=== PATIENT | male | born 1965 | race Caucasian/White ===

== ENCOUNTER 2017-08-14 17:53 | Inpatient (IN) | payer MEDICAID ==
[2017-08-14 17:59] VITALS: BMI 25.0
[2017-08-14 18:52] LABS: BASO # 0.1 K/uL (0.0-0.2); EOS # 0.1 K/uL (0.0-0.7); EOS % 0.6 % (0.0-4.0); HEMOGLOBIN 15.2 g/dL (12.0-18.0); LYMPH # 3.8 K/uL (1.0-4.3); LYMPH % 33.8 % (20.0-40.0); MEAN CELL VOLUME 95.7 fL (80.0-94.0); MEAN CORPUSCULAR HEMOGLOBIN 33.8 pg (27.0-31.0); MEAN CORPUSCULAR HGB CONC 35.4 g/dL (33.0-37.0); MEAN PLATELET VOLUME 7.7 fL (7.2-11.7); MONO # 0.9 K/uL (0.0-0.8); MONO % 7.7 % (0.0-10.0); NEUT # 6.5 K/uL (1.8-7.0); NEUT % 56.9 % (50.0-75.0); NRBC % 0.1 % (0.0-2.0); RBC 4.5 Mil/uL (4.40-5.90); RED CELL DISTRIBUTION WIDTH 12.8 % (11.5-14.5); WHITE BLOOD COUNT 11.4 K/uL (4.8-10.8)
[2017-08-14 18:57] LABS: SQUAMOUS EPITHIAL 2 /hpf (0-5); URINE BACTERIA FEW (<OCC); URINE BILIRUBIN NEGATIVE (NEGATIVE); URINE BLOOD NEGATIVE (NEGATIVE); URINE CLARITY Hazy (Clear); URINE COLOR Amber (YELLOW); URINE GLUCOSE (UA) NORMAL (Normal); URINE HYALINE CAST >20 /lpf (0-2); URINE LEUKOCYTE ESTERASE TRACE Leu/uL (Negative); URINE PROTEIN 1+ mg/dL (NEGATIVE)
[2017-08-14 19:06] LABS: ALB/GLOB RATIO 0.9 (1.0-2.1); ALBUMIN 4.6 g/dL (3.5-5.0); ALT/SGPT 94 U/L (21-72); AST/SGOT 63 U/L (17-59); BLOOD UREA NITROGEN 30 mg/dL (9-20); CALCIUM 10.4 mg/dl (8.6-10.4); GFR AFRICAN-AMERICAN > 60; GFR NON-AFRICAN AMERICAN 58
[2017-08-14 19:09] LABS: BARBITURATES, UR NEGATIVE (NEGATIVE); BENZODIAZEPINES, UR NEGATIVE (NEGATIVE); PHENCYCLIDINE, UR NEGATIVE (NEGATIVE)
[2017-08-14 19:10] LABS: OPIATES, UR POSITIVE (NEGATIVE)
--- NOTE | 2017-08-14 19:39 | C.PDOC ---
History Of Present Illness Pt is here requesting detox from Heroin. Time Seen by Provider: 08/14/17 18:14 Chief Complaint (Nursing): Substance Abuse History Per: Patient Onset/Duration Of Symptoms: Days Current Symptoms Are (Timing): Still Present Suicide/Self Injury Attempted (Context): None Modifying Factor(s): Narcotics, Crack Severity: Moderate Associated Symptoms: denies: Suicidal Thoughts, Suicidal Plan Additional History Per: Prior Records Past Medical History Reviewed: Historical Data, Nursing Documentation, Vital Signs Vital Signs: Last Vital Signs Temp 97.7 F 08/14/17 17:59 Pulse 88 08/14/17 17:59 Resp 18 08/14/17 17:59 BP 111/78 08/14/17 17:59 Pulse Ox 98 08/14/17 17:59 - Medical History PMH: No Chronic Diseases - [facility] Procedures DRUG DETOXIFICATION (01/17/15) Family History: States: Unknown Family Hx - Social History Hx Tobacco Use: Yes Hx Alcohol Use: No Hx Substance Use: Yes (Snorts Heroin and smokes crack) Review Of Systems Except As Marked, All Systems Reviewed And Found Negative. Constitutional: Negative for: Fever Cardiovascular: Negative for: Chest Pain Respiratory: Negative for: Shortness of Breath Gastrointestinal: Positive for: Constipation, Rectal Pain. Negative for: Vomiting, Abdominal Pain Musculoskeletal: Negative for: Neck Pain, Back Pain Skin: Negative for: Rash Neurological: Negative for: Weakness, Numbness, Seizures, Altered Mental Status Physical Exam - Physical Exam Appears: Non-toxic, No Acute Distress Skin: Normal Color, Warm, Dry, No Rash Head: Atraumatic, Normacephalic Eye(s): bilateral: PERRL, EOMI Neck: Normal ROM, Supple Cardiovascular: Rhythm Regular Respiratory: Normal Breath Sounds, No Accessory Muscle Use Gastrointestinal/Abdominal: Soft, No Tenderness Rectal: Hemorrhoids Extremity: Normal ROM Neurological/Psych: Oriented x3, Normal Motor, Normal Sensation ED Course And Treatment - Laboratory Results Result Diagrams: 08/14/17 18:49 08/14/17 18:49 O2 Sat by Pulse Oximetry: 98 Pulse Ox Interpretation: Normal Progress Note: Pt is medically stable for detox admission. Disposition Counseled Patient/Family Regarding: Studies Performed, Diagnosis - Disposition Disposition: HOSPITALIZED Disposition Time: 19:46 Condition: STABLE - Clinical Impression Clinical Impression: Drug abuse, Opioid dependence Decision To Admit - Pt Status Changed To: Hospital Disposition Of: Inpatient - Admit Certification Admit to Inpatient:: After my assessment, the patient will require hospitalization for at least two midnights. This is because of the severity of symptoms shown, intensity of services needed, and/or the medical risk in this patient being treated as an outpatient. - InPatient: Physician Admission Certification: I certify that this patient requires 2 or more midnights of care for the following reason:: Detox. - . Bed Request Type: Detox Admitting Physician: Savannah Forbes Patient Diagnosis: Drug abuse, Opioid dependence
--- NOTE | 2017-08-14 20:01 | PCM.BM ---
Treatment Plan Problems - Problems identified on initial assessmt Potential for opiates withdrawal Date Initiated: 08/14/17 Time Initiated: 20:00 Assessment reference: NA Status: Active Treatment assets and liabiliti Patient Assests: cooperative, ADL independent, cognitively intact Patient Liabilities: substance abuse - Milieu Protocol Maintain good personal hygiene: daily Encourage regular showers, every shift Remind patient to perform daily oral care, every shift Assist patient to perform ADL's Conduct patient checks and document Observation sheet: Q15 minutes Maintain personal safety: every shift Educate patient to report safety concerns to staff, every shift Monitor environment for contraband/sharps Medication safety: Monitor for expected outcome, potential side effects: every shift, Assess barriers to learning: every shift, Assess readiness for medication education: every shift
[2017-08-14 20:08] VITALS: BP 108/65; PULSE 81; RESP 20; TEMP 98.6; O2SAT 96
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
--- NOTE | 2017-08-14 23:12 | PCM.PSYCH ---
Initial Psychiatric Evaluation - Initial Psychiatric Evaluation Type of Admission: Voluntary Legal Status: Capacity History of Present Illness and Precipitating Events: Patient is a 51 year old male with a history of poly-substance abuse self- referred to [facility] for heroin detox admission. When asked why he wants to detox today patient states Im just tired. During the course of the assessment patient explained that he is extremely motivated to get clean because he is expected to fly to [place] on August 17. Patients lives in [place] with their two grandchildren, his step son and daughter in law. 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 Patient reports significant weight loss due to his use. Patient reports he is smoking $200 worth of cocaine daily. Patient also is using 2 bundles of heroin intra nasally daily for the past 8 months. Patient began abusing heroin when he was 40. 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 Patient reports a family history of alcoholism; patients father and brothers were/are alcoholics. Patient reports a history of one prior detox admission to in 2004. Patient states this was his only detox admission. Patient reports a history of 12 step involvement and plans to resume AA meetings upon completion of detox. Patient denies any medical history. Patient denies any psych history. Patient denies both SI and HI. [ End ] Past Psychiatric History - Past Psychiatric History Pertinent Medical Hx (Current Medical&Sleep Prob, Allergies): Allergies Allergy/AdvReac Type Severity Reaction Status Date / Time No Known Allergies Allergy Verified 08/14/17 17:58 No Known Home Med 08/14/17
== END 2017-08-14 20:45 | disposition left against medical advice (07) | DRG 743 ==
LOC: C.ER 17:53 → C.7D 19:47
PROVIDERS: ADMIT Psychiatry & Neurology Psychiatry; ATTEND Psychiatry & Neurology Psychiatry
DX: F11.20 Opioid dependence, uncomplicated (principal); R63.4 Abnormal weight loss; F14.20 Cocaine dependence, uncomplicated

== ENCOUNTER 2018-05-11 19:43 | Inpatient (IN) | payer MEDICAID ==
[2018-05-11 19:44] VITALS: BMI 25.0
[2018-05-11 21:34] LABS: BASO % 0.1 % (0.0-2.0); EOS # 0.2 K/uL (0.0-0.7); EOS % 1.6 % (0.0-4.0); HEMOGLOBIN 13.5 g/dL (12.0-18.0); LYMPH # 3.9 K/uL (1.0-4.3); LYMPH % 38.2 % (20.0-40.0); MEAN CELL VOLUME 95.6 fL (80.0-94.0); MEAN CORPUSCULAR HEMOGLOBIN 34.1 pg (27.0-31.0); MEAN CORPUSCULAR HGB CONC 35.6 g/dL (33.0-37.0); MEAN PLATELET VOLUME 6.9 fL (7.2-11.7); MONO # 0.8 K/uL (0.0-0.8); MONO % 7.3 % (0.0-10.0); NEUT # 5.5 K/uL (1.8-7.0); NEUT % 52.8 % (50.0-75.0); RBC 3.97 Mil/uL (4.40-5.90); RED CELL DISTRIBUTION WIDTH 13.1 % (11.5-14.5); WHITE BLOOD COUNT 10.3 K/uL (4.8-10.8)
[2018-05-11 21:39] LABS: SQUAMOUS EPITHIAL 1 /hpf (0-5); URINE BILIRUBIN NEGATIVE (NEGATIVE); URINE BLOOD NEGATIVE (NEGATIVE); URINE CLARITY Clear (Clear); URINE COLOR Yellow (YELLOW); URINE GLUCOSE (UA) NORMAL (Normal); URINE LEUKOCYTE ESTERASE NEG Leu/uL (Negative); URINE PROTEIN NEGATIVE (NEGATIVE)
[2018-05-11 21:49] LABS: ALB/GLOB RATIO 1.1 (1.0-2.1); ALBUMIN 4.2 g/dL (3.5-5.0); ALT/SGPT 31 U/L (21-72); AST/SGOT 29 U/L (17-59); BLOOD UREA NITROGEN 25 mg/dL (9-20); CALCIUM 9.5 mg/dl (8.6-10.4); GFR NON-AFRICAN AMERICAN > 60
[2018-05-11 22:09] LABS: BARBITURATES, UR NEGATIVE (NEGATIVE); BENZODIAZEPINES, UR NEGATIVE (NEGATIVE); PHENCYCLIDINE, UR NEGATIVE (NEGATIVE)
[2018-05-11 22:12] LABS: OPIATES, UR POSITIVE (NEGATIVE)
--- NOTE | 2018-05-11 22:50 | C.PDOC ---
History Of Present Illness 52 year old male presents to the ER as a prescreen for heroin detox, last use was this morning. Denies ETOH use, suicidal ideation, or homicidal ideation. Time Seen by Provider: 05/11/18 20:31 Chief Complaint (Nursing): Substance Abuse History Per: Patient History/Exam Limitations: no limitations Onset/Duration Of Symptoms: Hrs Current Symptoms Are (Timing): Still Present Suicide/Self Injury Attempted (Context): None Associated Symptoms: denies: Suicidal Thoughts, Other (Homicidal ideation) Involuntary Hold By: None Recent travel outside of the [place]: No Past Medical History Reviewed: Historical Data, Nursing Documentation, Vital Signs Vital Signs: Last Vital Signs Temp 98.2 F 05/11/18 19:58 Pulse 86 05/11/18 19:58 Resp 20 05/11/18 19:58 BP 119/79 05/11/18 19:58 Pulse Ox 96 05/11/18 19:58 - Medical History PMH: Denies: Diabetes, Hepatitis, HIV, HTN, Seizures, Sexually Transmitted Disease - [facility] Procedures DRUG DETOXIFICATION (01/17/15) Family History: States: Unknown Family Hx - Social History Hx Tobacco Use: Yes Hx Alcohol Use: No Hx Substance Use: Yes (Snorts Heroin and smokes crack) Review Of Systems Constitutional: Negative for: Fever, Chills Cardiovascular: Negative for: Chest Pain, Palpitations Respiratory: Negative for: Cough, Shortness of Breath Gastrointestinal: Negative for: Nausea, Vomiting Neurological: Negative for: Weakness, Numbness Psych: Negative for: Suicidal ideation, Other (Homicidal ideation) Physical Exam - Physical Exam Appears: Non-toxic Skin: Normal Color, Warm, Dry Head: Atraumatic, Normacephalic Eye(s): bilateral: Normal Inspection Oral Mucosa: Moist Chest: Symmetrical, No Tenderness Cardiovascular: Rhythm Regular Respiratory: Normal Breath Sounds, No Rales, No Rhonchi, No Wheezing Gastrointestinal/Abdominal: Soft, No Tenderness Neurological/Psych: Oriented x3, Normal Speech ED Course And Treatment - Laboratory Results Result Diagrams: 05/11/18 21:29 05/11/18 21:29 Lab Results: Total Bilirubin 0.5 mg/dL (0.2-1.3) 05/11/18 21:29 AST 29 U/L (17-59) 05/11/18 21:29 ALT 31 U/L (21-72) 05/11/18 21:29 Alkaline Phosphatase 59 U/L (38-126) 05/11/18 21:29 Total Protein 8.0 g/dL (6.3-8.3) 05/11/18 21:29 Albumin 4.2 g/dL (3.5-5.0) 05/11/18 21:29 Globulin 3.8 gm/dL (2.2-3.9) 05/11/18 21:29 Albumin/Globulin Ratio 1.1 (1.0-2.1) 05/11/18 21:29 Urine Color Yellow (YELLOW) 05/11/18 21:29 Urine Clarity Clear (Clear) 05/11/18 21:29 Urine pH 7.0 (5.0-8.0) 05/11/18 21:29 Ur Specific [place] 1.017 (1.003-1.030) 05/11/18 21:29 Urine Protein Negative mg/dL (NEGATIVE) 05/11/18 21:29 Urine Glucose (UA) Normal mg/dL (Normal) 05/11/18 21:29 Urine Ketones Negative mg/dL (NEGATIVE) 05/11/18 21:29 Urine Blood Negative (NEGATIVE) 05/11/18 21:29 Urine Nitrate Negative (NEGATIVE) 05/11/18 21:29 Urine Bilirubin Negative (NEGATIVE) 05/11/18 21:29 Urine Urobilinogen 2.0 mg/dL (0.2-1.0) 05/11/18 21:29 Ur Leukocyte Esterase Neg Evelyn/uL (Negative) 05/11/18 21:29 Urine WBC (Auto) < 1 /hpf (0-5) 05/11/18 21:29 Urine RBC (Auto) < 1 /hpf (0-3) 05/11/18 21:29 Ur Squamous Epith Cells 1 /hpf (0-5) 05/11/18 21:29 O2 Sat by Pulse Oximetry: 96 (Room air) Pulse Ox Interpretation: Normal Progress Note: Blood work and urinalysis ordered. Crisis notified. Patient medically cleared for admission. 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 - Scribe Statement The provider has reviewed the documentation as recorded by the Scribfabiola Hernandez All medical record entries made by the Brennanibfabiola were at my direction and personally dictated by me. I have reviewed the chart and agree that the record accurately reflects my personal performance of the history, physical exam, me dical decision making, and the department course for this patient. I have also personally directed, reviewed, and agree with the discharge instructions and disposition.
--- NOTE | 2018-05-12 06:09 | PCM.BM ---
<JfFarnaz lyles - Last Filed: 05/12/18 06:07> Treatment Plan Problems - Problems identified on initial assessmt Denial Date Initiated: 05/12/18 Time Initiated: 06:08 Assessment reference: NA Status: Active Defensive Coping Date Initiated: 05/12/18 Time Initiated: 06:08 Assessment reference: NA Status: Active Hopelessness Date Initiated: 05/12/18 Time Initiated: 06:08 Assessment reference: NA Status: Active Treatment assets and liabiliti Patient Assests: cooperative, ADL independent, cognitively intact Patient Liabilities: substance abuse - Milieu Protocol Maintain good personal hygiene: daily Encourage regular showers, daily Remind patient to perform daily oral care, daily Assist patient to perform ADL's Maintain personal safety: every shift Educate patient to report safety concerns to staff, every shift Monitor environment for contraband/sharps Medication safety: Monitor for expected outcome, potential side effects: every shift, Assess barriers to learning: every shift, Assess readiness for medication education: every shift <Giles Velasquez - Last Filed: 05/12/18 15:49> - Diagnosis (1) Opioid use disorder Status: Acute Interventions: 05/12/18 15:49 * Assess 7x/week regarding severity of withdrawal * Educate regarding risks, benefits, side effects and alternatives of medications * Use Motivational Interviewing for abstinence * Use CBT for relapse prevention * Medication management for withdrawal symptoms * Encourage medication assisted treatment *
[2018-05-12] MEDS ORDERED: Aluminum Hydroxide/Magnesium Hydroxide Susp (30 mL) PO PRN (09:05)
[2018-05-12] MEDS ORDERED: Buprenorphine Hydrochloride 2 mg SL ONE ×3 (09:15→11:45)
--- NOTE | 2018-05-12 10:56 | PCM.PSYCH ---
Initial Psychiatric Evaluation - Initial Psychiatric Evaluation Type of Admission: Voluntary Legal Status: Capacity Chief Complaint (in patient's own words): I need help to quit using heroin. 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 Patient states he uses about 2 bundles of heroin daily via IV and intranasal. Patient reports use since 2013 following a back injury for which he was given opiods and became addicted. Patient denies any previous rehab/detox. Patient tried to quit once with assistance with outpatient subutex; however, he was unable to remain off heroin. Patient admits to smoking 2 packs/day. Patient currently denies hallucinations, depression, suicidal/homicidal thoughts. Patient denies any psychiatric illness. PMHx: Denies Meds; Denies Allergies: Denies PSHx: Denies Patient states his last heroin use was approximately a day and half ago and he currently does not feel well. patient states he has abdominal and join pain and feels nauseous. Current Medications: Active Medications Generic Name Dose Route Start Last Admin Trade Name Freq PRN Reason Stop Dose Admin Al Hydrox/Mg Hydrox/Simethicone 30 ml 05/12/18 09:05 Maalox 30 Ml PO TID PRN Indigestion / Heartburn Clonidine HCl 0.1 mg 05/12/18 05:50 05/12/18 10:12 Catapres PO 0.1 mg Q6 PRN Administration Anxiety Cyclobenzaprine HCl 5 mg 05/12/18 14:00 Flexeril PO TID DARIEL Dicyclomine HCl 10 mg 05/12/18 10:08 Bentyl PO Q6H PRN GI cramps Hydroxyzine HCl 25 mg 05/12/18 05:51 05/12/18 06:59 Atarax PO 25 mg Q6 PRN Administration Anxiety Ibuprofen 600 mg 05/12/18 05:52 05/12/18 10:12 Motrin Tab PO 600 mg Q6 PRN Administration Pain, moderate (4-7) Influenza Virus Vaccine 60 mcg 05/15/18 11:00 Flucelvax Quad [id number] Syr IM 05/15/18 11:01 .ONCE ONE Loperamide HCl 2 mg 05/12/18 09:06 Imodium PO Q8 PRN Diarrhea Ondansetron HCl 4 mg 05/12/18 08:51 Zofran Tab PO Q8 PRN Nausea/Vomiting Past Psychiatric History - Past Psychiatric History Previous Treatment History: None Pertinent Medical Hx (Current Medical&Sleep Prob, Allergies): Allergies Allergy/AdvReac Type Severity Reaction Status Date / Time No Known Allergies Allergy Verified 05/11/18 20:01 No Known Home Med 08/14/17 Review of Systems - Constitutional Constitutional: Chills, Sweats, Malaise. absent: Fever, Weakness - Musculoskeletal Musculoskeletal: Arthralgias - Psychiatric Psychiatric: absent: Anxiety, Auditory Hallucinations, Confusion, Depression, Hallucinations, Homicidal Ideation, Mood Swings, Paranoia Mental Status Examination - Personal Presentation Personal Presentation: Looks stated age - Affect Affect: Constricted - Motor Activity Motor Activity: Psychomotor Agitation - Reliability in Providing Information Reliability in Providing Information: Fair - Speech Speech: Organized - Formal Thought Process Formal Thought Process: No Impairment - Obsessions/Compulsions Obsessions: None Compulsions: None - Cognitive Functions Orientation: Person, Place, Situation, Time Sensorium: Alert - Risk Risk: Withdrawal DSM 5 DX - DSM 5 DSM 5 Diagnosis: Opioid use disorder, severe Opioid withdrawal Cocaine use disorder, severe Tobacco use disorder, severe - Recommended/Plan of Treatment Treatment Recommendations and Plan of Treatment: Taper with subutex Flexeril PO 5mg TID PRN medications As needed medications All risks, benefits and alternatives of the meds discussed, and the pt agreed and understood. Attend groups and activities Supportive therapy and psychoeducation OK for abstinence CBT for relapse prevention Encourage MAT Refer to rehab or IOP, and self-help groups Teach healthy lifestyle methods, i.e. diet, exercise, meditation Smoking cessation with OK Nicotine patch if needed Projected ELOS: 38
[2018-05-13] MEDS: Buprenorphine Hydrochloride 2 mg SL SCH (10:53)
--- NOTE | 2018-05-13 12:15 | PCM.PYCHPN ---
Psychiatric Progress Note - Psychiatric Progress Note Medication Change: Yes Medical Record Reviewed: Yes Mental Status Examination - Cognitive Function Orientation: Person, Place, Situation, Time - Affect Affect: Constricted - Formal Thought Process Formal Thought Process: No Impairment - Homicidal Ideation Homicidal Ideation: No
[2018-05-14] MEDS: Buprenorphine Hydrochloride 2 mg SL SCH (09:19)
[2018-05-15] MEDS: Buprenorphine Hydrochloride 2 mg SL SCH (09:04)
[2018-05-15] MEDS ORDERED: Influenza Vaccine 60 mcg/0.5 mL SYR (4YR UP) IM ONE (11:00)
[2018-05-15 15:44] VITALS: RESP 18; O2SAT 98
--- NOTE | 2018-05-15 23:31 | PCM.PYCHPN ---
Psychiatric Progress Note - Psychiatric Progress Note Patient seen today, length of contact: 16 min Medication Change: Yes Medical Record Reviewed: Yes Mental Status Examination - Cognitive Function Orientation: Person, Place, Situation, Time - Affect Affect: Constricted - Formal Thought Process Formal Thought Process: No Impairment - Homicidal Ideation Homicidal Ideation: No
--- NOTE | 2018-05-16 09:02 | PCM.PYCHDC ---
Mental Status Examination - Mental Status Examination Orientation: Person, Place, Situation, Time Memory: Intact Mood: Anxious Affect: Constricted Speech: Appropriate Attention: WNL Concentration: WNL Association: WNL Fund of Knowledge: WNL Formal Thought Process: No Impairment Suicidal Ideation: No Current Homicidal Ideation?: No Discharge Summary - Discharge Note Consultations:: List each consultation separately and include: 1. Reason for request. 2. Findings. 3. Follow-up Summary of Hospital Course include:: 1. Description of specific treatment plan utilized for patients during their course of treatmen. 2. Summarize the time- course for resolution of acute symptoms and/or regressed behaviors. 3. Describe issues identified and worked on during hospitalization. 4. Describe medication utilized. 5. Describe medical problems identified and treated. 6. Reassessment of suicide risk Summary of Hospital Course: Hospital course: The pt was admitted and started on treatment with psychotherapy, support, psychoeducation and medications. [place] and CBT used. The pt attended groups and activities, as well as milieu therapy. All the risks and benefits of medications are discussed and the patient understood and agreed. The pt improved with the treatments provided. After care discussed with the patient. He will attend [facility] outpatient in [place]. - Diagnosis (1) Opioid use disorder Status: Acute - Final Diagnosis (DSM 5) Condition upon Discharge: STABLE DSM 5: Opioid use disorder, severe Opioid withdrawal Cocaine use disorder, severe Tobacco use disorder, severe Disposition: HOME/ ROUTINE Follow-up Treatment Plan: Continue below medications after discharge. Follow after care plan as discussed. Use relapse prevention skills Return to ER or call 911 if suicidal, homicidal or symptoms relapse. Stay away from stress, alcohol and drugs. See primary doctor regularly and get labs. Prescriptions/Medication Reconciliation: hydrOXYzine HCl [Atarax] 25 mg PO BID PRN #60 tab PRN Reason: Anxiety traZODone [Desyrel] 100 mg PO HS PRN #30 tab PRN Reason: Insomnia
[2018-05-16 09:03] VITALS: BP 121/78; PULSE 86; TEMP 97.8
[2018-05-16] MEDS: Buprenorphine Hydrochloride 2 mg SL SCH (09:15)
== END 2018-05-16 09:40 | disposition home or self-care (01) | DRG 745 ==
LOC: C.ER 19:43 → C.7D 05-12 04:48
PROVIDERS: ADMIT Psychiatry & Neurology Psychiatry; ATTEND Psychiatry & Neurology Psychiatry
PROC: HZ2ZZZZ Detoxification Services for Substance Abuse Treatment (ICD-10-PCS; principal; 2018-05-12)
PROC: HZ80ZZZ Medication Management for Substance Abuse Treatment, Nicotine Replacement (ICD-10-PCS; 2018-05-12)
PROC: HZ46ZZZ Group Counseling for Substance Abuse Treatment, Psychoeducation (ICD-10-PCS; 2018-05-12)
PROC: HZ59ZZZ Individual Psychotherapy for Substance Abuse Treatment, Supportive (ICD-10-PCS; 2018-05-12)
DX: F11.23 Opioid dependence with withdrawal (principal); F14.20 Cocaine dependence, uncomplicated; F17.210 Nicotine dependence, cigarettes, uncomplicated